=== PATIENT | male | born 1975 | race Caucasian/White ===

== ENCOUNTER 2017-08-24 12:55 | Emergency (ER) | payer SELFPAY ==
[2017-08-24] MEDS ORDERED: Bupivacaine 0.5% 10 ML VIAL ONE (13:19)
[2017-08-24] MEDS ORDERED: Penicillin V Potassium 250 MG TAB ONE (13:31)
== END 2017-08-24 13:49 | disposition home or self-care (01) ==
LOC: NAV ERS 12:55
DX: K04.7 Periapical abscess without sinus (principal); I10 Essential (primary) hypertension; F17.210 Nicotine dependence, cigarettes, uncomplicated
CPT/HCPCS: 41800; 99406; J3490